=== PATIENT | female | born 1990 | race Caucasian/White ===

== ENCOUNTER 2023-05-18 20:00 | Emergency (ER) | payer OTHER ==
[~2023-05-18] VITALS: Ht 165.1 cm; Wt 158.8 kg
[2023-05-18 20:48] VITALS: TEMP 98.1; O2SAT 99
[2023-05-18 21:31] LABS: BASOPHILS % 0.3 % (0.0-2.0); EOSINOPHILS % 0.5 % (0.0-5.0); HEMATOCRIT. 34.2 % (36.0-48.0); HEMOGLOBIN. 11.3 g/dL (12.0-16.0); MEAN CORPUSCULAR HEMOGLOBIN 26.8 pg (28.0-32.0); MEAN CORPUSCULAR VOLUME 81.1 fL (81.0-99.0); MEAN PLATELET VOLUME 8.6 fl (7.4-10.4); MONOCYTES % 6.9 % (2.0-8.0); NEUTROPHILS % 66.3 % (40.0-76.0); PLATELET 298 x1000/uL (130-400); RED BLOOD CELL COUNT 4.21 mill/uL (4.2-5.4); RED CELL DISTRIBUTION WIDTH 15.2 % (11.6-14.6)
[2023-05-18 21:52] LABS: ALANINE AMINOTRANSFERASE 8 IU/L (10-49); ALBUMIN 3.9 g/dL (3.2-4.8); ASPARTATE AMINOTRANSFERASE 11 IU/L (<34); BILIRUBIN TOTAL 0.2 mg/dL (0.1-1.0); CALCIUM 8.5 mg/dL (8.7-10.4); CARBON DIOXIDE 26 mEq/L (21-32); CHLORIDE 108 mEq/L (98-107); CREATININE 0.8 mg/dL (0.6-1.0); GLUCOSE 105 mg/dL (70-105); POTASSIUM 3.6 mEq/L (3.5-5.1); PROTEIN TOTAL 6.6 g/dL (6.0-8.3); SODIUM 140 mEq/L (136-145); UREA NITROGEN BLOOD 9 mg/dL (9-23)
[2023-05-18 22:51] LABS: CLARITY URINE CLEAR (CLEAR); COLOR URINE YELLOW (YELLOW); GLUCOSE URINE NEGATIVE (NEGATIVE); KETONES URINE TRACE (NEGATIVE); LEUKOCYTE ESTERASE URINE 3+ (NEGATIVE); NITRITE URINE POSITIVE (NEGATIVE); OCCULT BLOOD URINE TRACE (NEGATIVE); PROTEIN URINE NEGATIVE (NEGATIVE); SPECIFIC GRAVITY URINE 1.018 (1.005-1.030)
[2023-05-18 23:15] LABS: RBC URINE 0-2 /hpf (0-2); SQUAMOUS EPITHELIAL CELL URINE FEW /lpf (RARE/1+)
[2023-05-18 23:16] LABS: BACTERIA URINE 2+
[2023-05-19] MEDS ORDERED: CEPH500C2 MT
[2023-05-19] MEDS ORDERED: CEPHALEXIN 250MG CAPSULE PO ONE
[2023-05-19 00:03] VITALS: BP 145/64; PULSE 79; RESP 17
== END 2023-05-19 00:12 | disposition home or self-care (01) ==
LOC: ER 20:00
DX: N39.0 Urinary tract infection, site not specified (principal); R10.9 Unspecified abdominal pain
CPT/HCPCS: 36415; 80053; 81003; 85025; 99283

== ENCOUNTER 2024-06-11 12:32 | Emergency (ER) | payer MEDICAID, OTHER ==
[~2024-06-11] VITALS: Ht 165.1 cm; Wt 138.0 kg
[~2024-06-11 12:32] MED LIST: CEPH500C2 MT
[2024-06-11 12:40] VITALS: O2SAT 100
[2024-06-11 12:48] VITALS: BP 172/81; TEMP 98.6
[2024-06-11] MEDS: ACETAMINOPHEN 325MG TABLET PO STA (16:44)
[2024-06-11 18:07] VITALS: PULSE 70; RESP 20; O2SAT 98
[2024-06-11] MEDS: IPRATROPIUM BROMIDE (0.02%) 0.5MG/2.5ML NEB HHN STA (18:07)
[2024-06-11] MEDS: ALBUTEROL (0.083%) 2.5MG/3ML NEB HHN STA (18:07)
[2024-06-11] MEDS: METHYLPREDNISOLONE SOD SUCC 125MG/2ML (ACT-O-VIAL) IM STA (18:35)
[2024-06-11] MEDS ORDERED: ALBU05 NEB (19:15)
[2024-06-11] MEDS ORDERED: NAPR-681 PO (19:15)
[2024-06-11] MEDS ORDERED: DEXTL MT (19:15)
[2024-06-11] MEDS ORDERED: INHA1INH3 MC (19:15)
[2024-06-11] MEDS ORDERED: ALBU18HF2 IH (19:15)
[2024-06-11] MEDS ORDERED: ONDA4TAB50 MT (19:15)
[2024-06-11] MEDS ORDERED: BISM-77 MT (19:17)
[2024-06-11] MEDS ORDERED: FLUT9.9S BOTHNSTRLS (20:22)
== END 2024-06-11 21:28 | disposition home or self-care (01) ==
LOC: ER 13:01
DX: J45.909 Unspecified asthma, uncomplicated (principal); J20.9 Acute bronchitis, unspecified; K52.9 Noninfective gastroenteritis and colitis, unspecified; H69.90 Unspecified Eustachian tube disorder, unspecified ear; E66.9 Obesity, unspecified
CPT/HCPCS: 71045; 94640; 99283; J2919; Z7610 ×3; 94664